=== PATIENT | male | born 1995 | race Caucasian/White ===

== ENCOUNTER 2016-12-18 17:50 | Emergency (ER) | payer OTHER ==
[~2016-12-18] VITALS: Ht 177.8 cm; Wt 76.1 kg
[2016-12-18 18:16] VITALS: TEMP 36.9; Ht 177.8 cm; Wt 76.1 kg
--- NOTE | 2016-12-18 19:24 | EMERGENCY ROOM VISIT NOTE ---
History First contact with patient: 18:58 Chief Complaint: SHORTNESS OF BREATH Stated Complaint: SHORTNESS OF BREATH Nursing Triage Summary: Pt ambulates to room. reports increase in sob startedover a week or so ago pt states. Pt does report 16 hr air flight from [place] to here on November 30, 2016. History of Present Illness The patient is a 21 year old male who presents to the Emergency Room with complaints of intermittent shortness of breath for the past 1 week. He notes that for the past week he has had 3 episodes of shortness of breath that have lasted a few hours. The first episode, he went for a run, then had a coffee, then started feeling shortness of breath The second occasion he had shortness of breath, then started feeling shortness of breath Today, he was at a career fair. He did not have coffee and got short of breath. The shortness of breath is worse at rest. He notes that he has been able to go running and in-fact it improves when he runs. He denies wheezing. He denies chest pain. He denies palpitations. He does not feel his heart beating in his chest. He has no orthopnea or PND. He chowdhury no edema in the lower extremities. He denies fevers, he has been eating and drinking well. He denies symptoms of panic including nausea, vomiting, dizziness, sensations or dread or doom. Notes that he is looking for work now after he graduates but denies that that is a big source of stress for him. He does note he was diagnosed with "something for my heart" when he was a child. He notes he never requires any medication or intervention for this and it resolved on its own. He does not know the name of the condition. Review of Systems A 10 point review of systems was negative unless stated above. Past Medical/Surgical History Medical Problems: (1) No Known Active Medical Problems Surgical Problems: (1) [place] teeth extracted "something with my heart that is now resolved' Right index finger fracture Social History Smoking Status: Never Smoker Smokeless Tobacco Use: No Alcohol Use: occasionally (6 units per week) Drug Use: none Marital Status: single Housing Status: lives with friends Occupation Status: [employer] student Current/Historical Medications No Active Prescriptions or Reported Meds Allergies Coded Allergies: No Known Allergies (Unverified , 12/18/16) Physical Exam Vital Signs Date Time Temp Pulse Resp B/P Pulse Ox O2 Delivery O2 Flow Rate FiO2 12/18/16 21:03 46 12/18/16 19:03 Room Air 12/18/16 19:00 100 Room Air 12/18/16 18:16 36.9 68 18 132/72 98 Room Air Physical Exam Constitutional: Vital signs as above were reviewed. General: Well Appearing; no pain or distress, no respiratory difficulty Eyes: Pupils equal, round, and reactive to light. Extraocular muscles are intact. No proptosis. No photophobia. ENT: Mucous membranes are moist. Oropharynx is clear. No sinus tenderness. TMs are clear bilaterally. Cardiovascular: Heart with a regular rate and rhythm. Bradycardic. Pulses are palpable and symmetric in all 4 extremities. No pedal edema appreciated. Respiratory: Lungs clear to auscultation bilaterally. No wheezes, rales, or rhonchi appreciated. No accessory muscle use. No retractions. No increased work of breathing. GI: Abdomen soft, nontender, nondistended. Normal active bowel sounds. No abdominal hernias appreciated. No rebound. No guarding. : No CVA tenderness appreciated. Musculoskeletal: No midline cervical or vertebral tenderness. No gross deformities. No bony tenderness. No calf swelling or tenderness. Integumentary: Warm, dry, no rashes appreciated. Neurological: Patient awake, alert, and oriented x 3. Cranial nerves two through 12 grossly intact. Motor 5 out of 5 strength bilateral upper and lower extremities. Lymph: No cervical lymphadenopathy appreciated. Medical Decision & Procedures ER Provider Diagnostic Interpretation: [~ rep ct add3]] TWO VIEW CHEST CLINICAL HISTORY: Dyspnea. FINDINGS: PA and lateral chest radiographs are obtained. No prior studies are available for comparison at the time of dictation. The cardiomediastinal silhouette is unremarkable. The lungs and pleural spaces are clear. There is no pneumothorax. The bony thorax appears intact. IMPRESSION: No active disease in the chest. Electronically signed by: Navin Paez M.D. 12/18/2016 7:54 PM Dictated Date/Time: 12/18/2016 7:53 PM Laboratory Results 12/18/16 19:35 Red Blood Count 4.41, Mean Corpuscular Volume 90.9, Mean Corpuscular Hemoglobin 31.5, Mean Corpuscular Hemoglobin Concent 34.7, Mean Platelet Volume 10.3, Neutrophils (%) (Auto) 45.2, Lymphocytes (%) (Auto) 42.1, Monocytes (%) (Auto) 6.1, Eosinophils (%) (Auto) 5.8, Basophils (%) (Auto) 0.7, Neutrophils # (Auto) 3.14, Lymphocytes # (Auto) 2.92, Monocytes # (Auto) 0.42, Eosinophils # (Auto) 0.40, Basophils # (Auto) 0.05 12/18/16 19:35 Test 12/18/16 19:35 12/18/16 20:11 12/18/16 20:16 White Blood Count 6.94 K/uL (4.8-10.8) Red Blood Count 4.41 M/uL (4.7-6.1) Hemoglobin 13.9 g/dL (14.0-18.0) Hematocrit 40.1 % (42-52) Mean Corpuscular Volume 90.9 fL (80-100) Mean Corpuscular Hemoglobin 31.5 pg (25-34) Mean Corpuscular Hemoglobin Concent 34.7 g/dl (32-36) Platelet Count 229 K/uL (130-400) Mean Platelet Volume 10.3 fL (7.4-10.4) Neutrophils (%) (Auto) 45.2 % Lymphocytes (%) (Auto) 42.1 % Monocytes (%) (Auto) 6.1 % Eosinophils (%) (Auto) 5.8 % Basophils (%) (Auto) 0.7 % Neutrophils # (Auto) 3.14 K/uL (1.4-6.5) Lymphocytes # (Auto) 2.92 K/uL (1.2-3.4) Monocytes # (Auto) 0.42 K/uL (0.11-0.59) Eosinophils # (Auto) 0.40 K/uL (0-0.5) Basophils # (Auto) 0.05 K/uL (0-0.2) RDW Standard Deviation 41.6 fL (36.4-46.3) RDW Coefficient of Variation 12.5 % (11.5-14.5) Immature Granulocyte % (Auto) 0.1 % Immature Granulocyte # (Auto) 0.01 K/uL (0.00-0.02) Anion Gap 9.0 mmol/L (3-11) Est Creatinine Clear Calc Drug Dose 121.9 ml/min Estimated GFR () 125.7 Estimated GFR (Non- 108.4 BUN/Creatinine Ratio 16.6 (10-20) Calcium Level 8.9 mg/dl (8.5-10.1) Total Creatine Kinase 169 U/L (39-308) Creatine Kinase MB 1.1 ng/ml (0.5-3.6) Thyroid Stimulating Hormone (TSH) 0.597 uIu/ml (0.300-4.500) Free Thyroxine 1.03 ng/dl (0.80-1.60) Creatine Kinase MB Ratio (0-3.0) Bedside D-Dimer 44 ng/mlFEU (0-450) Bedside Troponin I 0.020 ng/ml (0-0.045) ECG Change: SInus bradycardia with early repolarization No ectopy; no pauses No acute ST or T wave changes ED Course 19:00 - Patient seen and assessed 20:10 - Case reviewed with Dr. Watts Labs and CXR reviewed CBC WNL; Hb 13 BMP negative CXR reviewed; normal; no evidence of consolidation TSH, free T4, d-dimer, CK, CKMB, troponin ordered 21:10 - Thyroid studies, d-dimer and cardiac enzymes WNL Discussed results with patient; recommend discharge with PCP follow-up; patient agrees Patient discharged in stable condition Medical Decision Patient presents with intermittent shortness of breath with rest. He recently travelled from [place]. He notes a background history of cardiac condition which is not being actively treated because it resolved when he was younger. History was obtained, Physical examination was performed and EMR reviewed. There are no prior visits. I do not have access to his reports from his childhood cardiac work-up from [place]. Differential includes: Asthma, Pulmonary embolism, Pneumothorax, Pericarditis, Myocarditis, Cardiomyopathy, ACS, GERD, esophagitis, PUD/Gastritis, Anxiety. Chest x-ray was negative for acute process. Cardiac enzymes were within normal limits. He had no wheezing on clinical exam, had no respiratory distress and was oxygenating well on room air. Given his history of long-haul travel, we considered PE but a d-dimer ruled this out. Thyroid studies were also within normal limits. Results were discussed with the patient. At this time, he does not require admission for further work-up but ambulatory work-up, possible with echocardiogram and holter monitor may be beneficial. He will establish with a PCP where these options can be discussed. He was discharged feeling well and in stable condition. Impression Primary Impression: Shortness of breath Ruled Out: Pneumonia, Pulmonary embolism, Heart attack Departure Information Dispostion Home / Self-Care Condition GOOD Prescriptions No Active Prescriptions or Reported Meds Referrals No Doctor, Assigned (PCP) Patient Instructions My [facility] Additional Instructions You came to the ED for some episodes of shortness of breath. We did a chest x-ray which was normal. We did an EKG which was normal We did a blood test to check to see if your heart is under stress and it was fortunately normal. We checked your thyroid and it was normal. We also checked a blood test which fortunately, ruled out pulmonary embolism. It is unclear why you have episodic shortness of breath. In the emergency department you did not have any wheezing or abnormalities on your examination. You did note a history of cardiac investigations. We did not have access to the reports. However, you should establish yourself with a primary care provider and if possible get them these reports so they can determine the next best step for you. Fortunately at this time, your symptoms do not require hospitalization. You can resume all your regular activities. If you are looking for a primary doctor, you can see Dr. Isra Sims in his office at the following address: [address] [facility], [address] [place], [address] [phone] Please call and make an appointment for 1-2 weeks after you leave the emergency department to ensure that you continue to improve. It was a pleasure to be involved in your care and we wish you all the best.
[2016-12-18 19:47] LABS: BASO % 0.7 %; BASO ABS # 0.05 K/uL (0-0.2); COMPLETE YES; EOS % 5.8 %; HEMATOCRIT 40.1 % (42-52); IG% 0.1 %; LYMPH % 42.1 %; LYMPH ABS # 2.92 K/uL (1.2-3.4); MEAN CELL VOLUME 90.9 fL (80-100); MEAN CORPUSCULAR HEMOGLOBIN 31.5 pg (25-34); MEAN CORPUSCULAR HGB CONC 34.7 g/dl (32-36); MEAN PLATELET VOLUME 10.3 fL (7.4-10.4); MONO % 6.1 %; NEUT % 45.2 %; PLATELET COUNT 229 K/uL (130-400); RED BLOOD COUNT 4.41 M/uL (4.7-6.1); WHITE BLOOD COUNT 6.94 K/uL (4.8-10.8)
--- NOTE | 2016-12-18 19:55 | DIAGNOSTIC IMAGING REPORT ---
TWO VIEW CHEST CLINICAL HISTORY: Dyspnea. FINDINGS: PA and lateral chest radiographs are obtained. No prior studies are available for comparison at the time of dictation. The cardiomediastinal silhouette is unremarkable. The lungs and pleural spaces are clear. There is no pneumothorax. The bony thorax appears intact. IMPRESSION: No active disease in the chest. Electronically signed by: Navin Paez M.D. 12/18/2016 7:54 PM Dictated Date/Time: 12/18/2016 7:53 PM
[2016-12-18 20:05] LABS: BUN/CREATININE RATIO 16.6 (10-20); CALCIUM 8.9 mg/dl (8.5-10.1); CREATININE 0.99 mg/dl (0.60-1.40); POTASSIUM 3.9 mmol/L (3.5-5.1)
[2016-12-18 20:32] LABS: POINT OF CARE TROPONIN I 0.02 ng/ml (0-0.045)
[2016-12-18 21:00] VITALS: BP 118/59; O2SAT 100
[2016-12-18 21:03] VITALS: PULSE 46
[2016-12-18 21:13] LABS: CKMB/CK RATIO 0.7 (0-3.0); THYROID STIMULATING HORMONE 0.597 uIu/ml (0.300-4.500)
--- NOTE | 2016-12-19 01:50 | EMERGENCY ROOM VISIT NOTE ---
History Report prepared by Anette: Lisa Olvera Under the Supervision of: Dr. Frantz Watts M.D. First contact with patient: 18:58 Chief Complaint: SHORTNESS OF BREATH Stated Complaint: SHORTNESS OF BREATH Nursing Triage Summary: Pt ambulates to room. reports increase in sob startedover a week or so ago pt states. Pt does report 16 hr air flight from [place] to here on November 30, 2016. History of Present Illness The patient is a 21 year old male who presents to the Emergency Room with complaints of intermittent episodes of shortness of breath that began about a week ago. His initial episode started when he finished going for a run and drank a cup of coffee a week ago. He was at rest when he started to feel short of breath and it went away on its own a few hours later. He notes that when the episode began, his heart rate went up to 85, when it is normally around 65-70. He drinks coffee on a regular basis. A few days ago, the patient had another episode, despite not having a cup of coffee that day. Again, the episode resolved. Today, the patient was the career fair and had a 3rd episode of shortness of breath. He did not run or drink coffee prior to the episode. He notes that he was slightly nervous at the [employer] but denies any significant stressors. His pulse was normal today. Currently, he feels improved from earlier, but still feels slightly short of breath. During his episodes of shortness of breath, the patient has noticed that it seems to improve when he is running because he controls his breathing. He got 9 hours of sleep last night. The patient reports having similar episodes of shortness of breath when he was in middle school, which he was worked up for, but he cannot remember his diagnosis. He thinks he had an echocardiogram. He did not need to be treated and his symptoms eventually went away on their own. The patient does not have a history of asthma, anxiety, panic attacks, or smoking. He does report a flight from [place] on November 30. Denies fever, chest pain, palpitations, back pain, cough, vomiting, leg swelling/pain, or other complaints. There is no known family history of blood clots in the legs or chest. There is no family history of sudden . His grandfather at 48, but he was a heavy smoker. Source of History: patient Onset: a week ago Position: other (Global - SOB) Timing: intermittent Modifying Factors (Relieving): other (running) Associated Symptoms: No back pain, No chest pain, No cough, No fevers, No vomiting Review of Systems See HPI for pertinent positives & negatives. A total of 10 systems reviewed and were otherwise negative. Past Medical & Surgical Medical Problems: (1) No Known Active Medical Problems Surgical Problems: (1) [place] teeth extracted Family History Cancer Heart disease Social History Smoking Status: Never Smoker Smokeless Tobacco Use: No Alcohol Use: occasionally (6 units per week) Drug Use: none Marital Status: single Housing Status: lives with friends Occupation Status: [employer] student Current/Historical Medications No Active Prescriptions or Reported Meds Allergies Coded Allergies: No Known Allergies (Unverified , 12/18/16) Physical Exam Vital Signs Date Time Temp Pulse Resp B/P Pulse Ox O2 Delivery O2 Flow Rate FiO2 12/18/16 21:03 46 12/18/16 21:00 52 18 118/59 100 Room Air 12/18/16 19:03 Room Air 12/18/16 19:00 100 Room Air 12/18/16 18:16 36.9 68 18 132/72 98 Room Air Physical Exam Constitutional: Vital signs reviewed. Eyes: Pupils are equal round reactive to light. Conjunctiva are noninjected. ENT: Pharynx is clear without erythema or exudate. Mucous membranes are moist. Neck supple without meningeal signs. Respiratory: Clear to auscultation bilaterally. Breath sounds are equal bilaterally. No wheezing or rales. Cardiovascular: Bradycardic rate at 56 and regular rhythm. No rubs or gallops. GI: Soft, nondistended and nontender. Bowel sounds are present. Musculoskeletal: No peripheral edema. No lower extremity tenderness. Integumentary: No cyanosis. Neurological: The patient is awake and alert. No focal deficits. Psychiatric: Normal affect. Medical Decision & Procedures ER Provider Diagnostic Interpretation: X-ray results as stated below per interpretation by me and the radiologist: TWO VIEW CHEST CLINICAL HISTORY: Dyspnea. FINDINGS: PA and lateral chest radiographs are obtained. No prior studies are available for comparison at the time of dictation. The cardiomediastinal silhouette is unremarkable. The lungs and pleural spaces are clear. There is no pneumothorax. The bony thorax appears intact. IMPRESSION: No active disease in the chest. Electronically signed by: Navin Paez M.D. 12/18/2016 7:54 PM Dictated Date/Time: 12/18/2016 7:53 PM Laboratory Results 12/18/16 19:35 Red Blood Count 4.41, Mean Corpuscular Volume 90.9, Mean Corpuscular Hemoglobin 31.5, Mean Corpuscular Hemoglobin Concent 34.7, Mean Platelet Volume 10.3, Neutrophils (%) (Auto) 45.2, Lymphocytes (%) (Auto) 42.1, Monocytes (%) (Auto) 6.1, Eosinophils (%) (Auto) 5.8, Basophils (%) (Auto) 0.7, Neutrophils # (Auto) 3.14, Lymphocytes # (Auto) 2.92, Monocytes # (Auto) 0.42, Eosinophils # (Auto) 0.40, Basophils # (Auto) 0.05 12/18/16 19:35 Test 12/18/16 19:35 12/18/16 20:11 12/18/16 20:16 White Blood Count 6.94 K/uL (4.8-10.8) Red Blood Count 4.41 M/uL (4.7-6.1) Hemoglobin 13.9 g/dL (14.0-18.0) Hematocrit 40.1 % (42-52) Mean Corpuscular Volume 90.9 fL (80-100) Mean Corpuscular Hemoglobin 31.5 pg (25-34) Mean Corpuscular Hemoglobin Concent 34.7 g/dl (32-36) Platelet Count 229 K/uL (130-400) Mean Platelet Volume 10.3 fL (7.4-10.4) Neutrophils (%) (Auto) 45.2 % Lymphocytes (%) (Auto) 42.1 % Monocytes (%) (Auto) 6.1 % Eosinophils (%) (Auto) 5.8 % Basophils (%) (Auto) 0.7 % Neutrophils # (Auto) 3.14 K/uL (1.4-6.5) Lymphocytes # (Auto) 2.92 K/uL (1.2-3.4) Monocytes # (Auto) 0.42 K/uL (0.11-0.59) Eosinophils # (Auto) 0.40 K/uL (0-0.5) Basophils # (Auto) 0.05 K/uL (0-0.2) RDW Standard Deviation 41.6 fL (36.4-46.3) RDW Coefficient of Variation 12.5 % (11.5-14.5) Immature Granulocyte % (Auto) 0.1 % Immature Granulocyte # (Auto) 0.01 K/uL (0.00-0.02) Anion Gap 9.0 mmol/L (3-11) Est Creatinine Clear Calc Drug Dose 121.9 ml/min Estimated GFR () 125.7 Estimated GFR (Non- 108.4 BUN/Creatinine Ratio 16.6 (10-20) Calcium Level 8.9 mg/dl (8.5-10.1) Total Creatine Kinase 169 U/L (39-308) Creatine Kinase MB 1.1 ng/ml (0.5-3.6) Thyroid Stimulating Hormone (TSH) 0.597 uIu/ml (0.300-4.500) Free Thyroxine 1.03 ng/dl (0.80-1.60) Creatine Kinase MB Ratio (0-3.0) Bedside D-Dimer 44 ng/mlFEU (0-450) Bedside Troponin I 0.020 ng/ml (0-0.045) Laboratory results as reviewed by me. ECG Indication: SOB/dyspnea Rate (beats per minute): 46 Rhythm: sinus bradycardia Findings: no acute ischemic change, no ectopy, other (early repolarization) ED Course 2014: The patient was evaluated in room C6. A complete history and physical exam was performed. 2114: The patient was reassessed and was resting comfortably. Results were discussed with the patient. He agreed with the treatment plan. The patient was discharged home. Medical Decision This is a 21-year-old male presents with shortness of breath. Differential diagnosis includes reactive airway disease, pneumonia, pneumothorax, pulmonary embolism, anemia. I did perform a limited focused review of portions of the patient's old chart on the electronic medical record. The patient has had no prior visits to this hospital. I did evaluate the patient as noted above. IV access was established. The patient was placed on a continuous hospital monitor. I did personally review the patient's 12-lead EKG and chest x-ray as described above. I did order and review the patient's blood work as noted in the electronic medical record. D- dimer and troponin are both negative. The cause of his dyspnea is unclear at this time. He did have similar episodes of dyspnea when he was in middle school and states that he had an echocardiogram at that time. He is not sure what the results of this were. He will call his parents in the morning in [place] to get further details. It was recommended to him that he follow closely with a regular physician or [facility] for further evaluation and possible repeat outpatient echocardiogram. At this time he is not having any symptoms. He was discharged in good condition and return instructions were discussed with him. Resident Physician Supervision Note: I did evaluate and examine this patient myself. I did guide management for the patient. I agree with the resident's (Dr. Sims) assessment as discussed. Please see the resident's dictation for further details. Impression Primary Impression: Dyspnea Scribe Attestation The scribe's documentation has been prepared under my direct and personally reviewed by me in its entirety. I confirm that the note above accurately reflects all work, treatment, procedures, and medical decision making performed by me. Departure Information Dispostion Home / Self-Care Prescriptions No Active Prescriptions or Reported Meds Referrals No Doctor, Assigned (PCP) Patient Instructions My [facility] Additional Instructions You came to the ED for some episodes of shortness of breath. We did a chest x-ray which was normal. We did an EKG which was normal We did a blood test to check to see if your heart is under stress and it was fortunately normal. We checked your thyroid and it was normal. We also checked a blood test which fortunately, ruled out pulmonary embolism. It is unclear why you have episodic shortness of breath. In the emergency department you did not have any wheezing or abnormalities on your examination. You did note a history of cardiac investigations. We did not have access to the reports. However, you should establish yourself with a primary care provider and if possible get them these reports so they can determine the next best step for you. Fortunately at this time, your symptoms do not require hospitalization. You can resume all your regular activities. If you are looking for a primary doctor, you can see Dr. Isra Sims in his office at the following address: [address] [place] [address], [address] [place], [address] [phone] Please call and make an appointment for 1-2 weeks after you leave the emergency department to ensure that you continue to improve. It was a pleasure to be involved in your care and we wish you all the best.
== END 2016-12-18 21:31 | disposition home or self-care (01) ==
LOC: C.EDB 17:53 → C.EDC 21:31
DX: R06.00 Dyspnea, unspecified (principal)